=== PATIENT | male | born 1930 | race Caucasian/White ===

== ENCOUNTER 2016-07-27 09:21 | Emergency (ER) | payer OTHER, BC ==
[~2016-07-27] VITALS: Ht 170.2 cm; Wt 52.6 kg
[2016-07-27] MEDS ORDERED: KLOR-CON 1010 MEQ PO (09:51)
[2016-07-27] MEDS ORDERED: SIMVASTATIN40 MG PO (09:51)
[2016-07-27] MEDS ORDERED: AUGMENTIN 875875 MG PO (09:51)
[2016-07-27] MEDS ORDERED: IRBESARTAN150 MG PO (09:51)
[2016-07-27] MEDS ORDERED: FLUOROMETHOLONE15 ML OP (09:51)
[2016-07-27] MEDS ORDERED: TOPROL XL25 MG PO (09:51)
[2016-07-27] MEDS ORDERED: ELIQUIS2.5 MG PO (09:51)
[2016-07-27] MEDS ORDERED: HYDROCHLOROTHIA25 M2 PO (09:51)
[2016-07-27] MEDS ORDERED: DUREZOL5 ML OP (09:52)
[2016-07-27] MEDS ORDERED: FLUZONE HI180 MCG/04 IM (09:52)
[2016-07-27 10:05] LABS: ABSOLUTE NEUTROPHILS 8.1 thou/uL (1.4-8.2); BASOPHILS 0.5 % (0.0-2.0); EOSINOPHILS 0.5 % (0.0-3.0); HEMATOCRIT 33.7 % (42.0-52.0); HEMOGLOBIN 11.4 gm/dL (14.0-18.0); LYMPHOCYTES 11.5 % (24.0-44.0); MCH 30.5 pg (26.0-34.0); MCHC 33.9 % (28.0-37.0); MONOCYTES 9.3 % (1.0-8.0); PLATELET COUNT 248 thou/uL (150-400); POLYS 78.2 % (36.0-66.0); RBC 3.74 mil/uL (4.50-6.00); RDW 13.4 % (10.5-14.5); WBC 10.4 thou/uL (4.0-11.0)
[2016-07-27 10:09] LABS: MANUAL DIFF NO
[2016-07-27 10:22] LABS: CALCIUM 8.9 mg/dL (8.5-10.1); CREATININE 1.6 mg/dL (0.6-1.3)
[2016-07-27] MEDS ORDERED: PROAIR HFA8.5 GM INH (11:10)
[2016-07-27] MEDS ORDERED: TESSALON PERLE100 MG PO (11:10)
[2016-07-27 11:44] VITALS: BP 128/98
== END 2016-07-27 11:44 | disposition home or self-care (01) ==
LOC: ER 09:21
PROVIDERS: Emergency Medicine
DX: J18.9 Pneumonia, unspecified organism (principal); I25.10 Atherosclerotic heart disease of native coronary artery without angina pectoris

== ENCOUNTER 2016-11-25 05:52 | Inpatient (IN) | payer OTHER, BC ==
[~2016-11-25] VITALS: Ht 170.2 cm; Wt 50.3 kg
--- NOTE | ~2016-11-25 | O ---
[facility] [place] [address] OPERATIVE REPORT Name: ROBBY RIVERA Room #: 150-4 [facility] M..#: [id number] Admission: 11/25/16 Attend Phys: Boni Queen MD Discharge: Date of : 32 Report #: [id number] THIS REPORT FOR: //name// CC: Julio Queen DATE OF SERVICE: 11/25/2016 PATIENT OF: Dr. Boni Queen and Dr. Julio Mcdowell. PREOPERATIVE DIAGNOSIS: Right inguinal hernia. POSTOPERATIVE DIAGNOSES: Right inguinal hernia with a right cord lipoma. PROCEDURE: Right inguinal hernia repair with Prolene hernia system mesh and excision of right cord lipoma. SURGEON: Boni Queen MD ANESTHESIA: Local IV sedation. DESCRIPTION OF PROCEDURE: The patient was brought to the operating room and placed on operative table in the supine position. Sequential compression devices were in place for DVT prophylaxis. There was no indication for preoperative antibiotics. The patient underwent IV sedation. Right inguinal area was prepped and draped in a sterile fashion. Skin and subcutaneous tissue were then infiltrated with 0.5% Marcaine and 1% Xylocaine in a 1:1 mixture. Right inguinal skin incision was then performed using #10 scalpel blade. Hemostasis obtained using electrocautery as well as clamps and 2-0 chromic ties. Dissection was carried down through subcutaneous tissue, the external oblique fascia, which was then incised with a knife and opened with the Metzenbaum scissors. The ilioinguinal nerve was identified, dissected free, injected with the local mixture and preserved. Cord was then elevated and held into place with a [place] drain. Cremasteric muscle fibers were then split in the direction of fibers using clamp and electrocautery. A cord lipoma was identified, dissected free, clamped, excised and tied with a 2-0 chromic tie. The floor was inspected and there was a direct inguinal hernia sac. The hernia sac was dissected free and reduced through the floor and a large Prolene hernia system mesh was then inserted through the floor and the underlay patch was then deployed in the preperitoneal space. The floor was then tightened around the connector using running 2-0 Prolene two layer Shouldice repair. The overlay patch was then deployed in the inguinal canal and the mesh was secured at the pubic tubercle with the same running 2-0 Prolene suture. The mesh was then secured superiorly at the connector and using simple interrupted 2-0 Vicryl suture. The mesh was split and wrapped around the cord, secured to the inguinal [address] [address] OPERATIVE REPORT Name: ROBBY RIVERA Room #: 150-4 [facility] M.R.#: [id number] Admission: 11/25/16 Attend Phys: Boni Queen MD Discharge: Date of : 31 Report #: [id number] with simple interrupted 2-0 Vicryl suture. The cord and ilioinguinal nerve then returned to the canal intact. The external oblique fascia was then closed using running 2-0 Vicryl suture. Alfred's fascia was then reapproximated using 3 simple interrupted 2-0 chromic sutures and the skin then closed with a running 4-0 subcuticular Vicryl stitch. The wound was then dressed with Mastisol, 1/2-inch Steri-Strips cut in half, Telfa, 4 x 4 gauze, sponge and tape. The patient was then taken to recovery room awake, alert and in good condition. Estimated blood loss was less than 5 mL and the patient tolerated the procedure well. All sponge, lap and instrument counts correct times 2. By: 1116 [id number] Boni Queen MD /nt
--- NOTE | ~2016-11-25 | S ---
[facility] [place] [address] SURGICAL PATH RPT PROCEDURE Name: ROBBY RIVERA Room #: 439-P [facility] IN M.R.#: [id number] Admission: 11/25/16 Date of : 31 Discharge: 11/26/16 Report #: [id number] Path Case #: [id number] PATHOLOGY REPORT COLLECTION DATE: 11/25/2016 RECEIVED DATE: 11/25/2016 SUBMITTING PHYS: Dr. Boni Queen OTHER PHYS: Dr. Julio Mcdowell SPECIMEN(S) RECEIVED: A.Cord lipoma * * * * * * * * * * * * FINAL DIAGNOSIS: Mature adipose tissue, cord lipoma, excision: - Compatible with a lipoma associated with foci of fat necrosis and reactive changes. (IUV:mgr; d/t: 11/27/16) PATHOLOGIST: Alyssa Remy M.D. REPORT ELECTRONICALLY SIGNED BY: Alyssa Remy M.D. DATE/TIME: 11/27/2016 14:43 * * * * * * * * * * * * GROSS PATHOLOGY: Received in formalin labeled "Robby Rivera cord lipoma," is a segment of lobulated fibroadipose tissue measuring 5.2 x 1.5 x 1.0 cm in maximum dimensions. Sectioning reveals homogeneous, bright yellow cut surfaces. Yeast Maker tissue is submitted in cassette A1. (SNA; 11/26/2016) CLINICAL HISTORY: Right inguinal hernia INITIAL CPT CODE(S): A; 12785 Professional services performed by [facility] at [facility] [address] [place] [address] Technical services performed by [facility] at [address] [place] [id number]. [facility] [address] [place] [address] SURGICAL PATH RPT PROCEDURE Name: ROBBY RIVERA Room #: 439-P DIS IN M.R.#: [id number] Admission: 11/25/16 Date of : 31 Discharge: 11/26/16 Report #: [id number] Path Case #: [id number] [address] PHONE: [phone] DIRECTOR: Pratik Boateng M.D. * * * END OF REPORT * * *
--- NOTE | ~2016-11-25 | H ---
[facility] [place] [address] HISTORY AND PHYSICAL Name: ROBBY RIVERA Room #: 439-P [facility] IN M.R.#: [id number] Admission: 11/25/16 Attend Phys: Boni Queen MD Discharge: 11/26/16 Date of : 31 Report #: [id number] THIS REPORT FOR: //name// For History and Physical, please see office documentation/handwritten note in the patient's medical record. By: 0853 Boni Queen MD /
[~2016-11-25 05:52] MED LIST: AUGMENTIN 875875 MG PO; DUREZOL5 ML OP; ELIQUIS2.5 MG PO; FLUOROMETHOLONE15 ML OP; FLUZONE HI180 MCG/04 IM; HYDROCHLOROTHIA25 M2 PO; IRBESARTAN150 MG PO; KLOR-CON 1010 MEQ PO; LOTEMAX3.5 GM OPHTHALMIC; PRILOSEC OTC20 MG PO; PROAIR HFA8.5 GM INH; PROLIA60 MG/1 ML SQ; SIMVASTATIN40 MG PO; TESSALON PERLE100 MG PO; TOPROL XL25 MG PO; VITAMIN D31000 UNI2 PO
[2016-11-25 09:30] LABS: CALCIUM 8.3 mg/dL (8.5-10.1); CREATININE 1.3 mg/dL (0.7-1.3)
[2016-11-25 09:51] VITALS: BP 124/92
[2016-11-25] MEDS ORDERED: NORCO 5-325 TA1 EACH PO (11:31)
[2016-11-25 12:20] VITALS: BP 131/62
[2016-11-25 20:03] VITALS: BP 112/61
[2016-11-26 05:20] VITALS: BP 90/42
[2016-11-26 08:00] VITALS: BP 123/65
[2016-11-26 11:40] VITALS: BP 123/65
== END 2016-11-26 12:40 | disposition home or self-care (01) | DRG 352 ==
LOC: TBA 05:52 → OR 05:52 → 4S 12:53 → OR 14:16 → 4S 11-26 12:40
PROVIDERS: Surgery
PROC: 0YU50JZ Supplement Right Inguinal Region with Synthetic Substitute, Open Approach (ICD-10-PCS; principal; 2016-11-25)
PROC: 0VB Male Reproductive System, Excision (ICD-10-PCS; principal; 2016-11-25)
DX: K40.90 Unilateral inguinal hernia, without obstruction or gangrene, not specified as recurrent (principal); D17.5 Benign lipomatous neoplasm of intra-abdominal organs; Z79.899 Other long term (current) drug therapy
CPT/HCPCS: 10102; 50010; 50101; 50386; 50417; 52061; 56524; 56525; 56526; 56528; 62110; 62850; 70005

== ENCOUNTER → 2020-01-04 | Outpatient (CLI) | payer OTHER, BC ==
[~2020-01-04] MED LIST changes: +NORCO 5-325 TA1 EACH PO
== END ==
LOC: SJCVC 10:12
PROVIDERS: ATTEND Internal Medicine Cardiovascular Disease
DX: I45.10 Unspecified right bundle-branch block (principal); R94.31 Abnormal electrocardiogram [ECG] [EKG]; I48.91 Unspecified atrial fibrillation; E78.00 Pure hypercholesterolemia, unspecified; I10 Essential (primary) hypertension; I08.0 Rheumatic disorders of both mitral and aortic valves; D68.59 Other primary thrombophilia; E78.5 Hyperlipidemia, unspecified; Z79.899 Other long term (current) drug therapy; Z82.49 Family history of ischemic heart disease and other diseases of the circulatory system; Z87.891 Personal history of nicotine dependence

== ENCOUNTER → 2020-10-08 | Outpatient (CLI) | payer OTHER, BC | LOC: SJCVCIMAG 07:38 | PROVIDERS: ATTEND Internal Medicine Cardiovascular Disease | DX: I08.3 Combined rheumatic disorders of mitral, aortic and tricuspid valves (principal); I48.91 Unspecified atrial fibrillation; E78.00 Pure hypercholesterolemia, unspecified; I10 Essential (primary) hypertension; E78.5 Hyperlipidemia, unspecified; I27.20 Pulmonary hypertension, unspecified; R94.31 Abnormal electrocardiogram [ECG] [EKG]; Z79.899 Other long term (current) drug therapy; Z87.891 Personal history of nicotine dependence; Z72.89 Other problems related to lifestyle ==

== ENCOUNTER 2020-10-09 17:17 | Emergency (ER) | payer OTHER, BC ==
[~2020-10-09] VITALS: Ht 167.6 cm; Wt 52.2 kg
--- NOTE | ~2020-10-09 | EMS ---
[address] [address] EMS Patient Care Report Name: ROBBY RIVERA Room #: REG DARI Baker#: [id number] Admission: 10/09/20 Attend Phys: Discharge: Date of : 31 Report #: [id number] THIS REPORT FOR: //name// Report Transmitted: 10/09/2020 17:57 EMS Care Summary [facility] MED-ACT Incident [id number] @ 10/09/2020 16:29 Incident Location [address] [place] [address] Patient ROBBY RIVERA Male, 89 Years 1930 Patient Address [address] [place] [address] Patient History Atrial Fibrillation, Patient Allergies No known allergies, Patient Medications Eliquis, Erythropoietin, Metoprolol, Hydrochlorothiazide (Hctz), Chief Complaint syncope, per bystander Disposition Transported No Lights/[place] Dispatch Reason Sick Person Transported To [facility] Narrative [id number] arrived to find pt. seated in the dining room of an independent living facility, A & O x 3. Bystander states that while she was eating dinner she noticed pt. slumped over to the side of his chair and drooling. Bystander states that when she got to pt's side he awoke. Pt. states he remembers eating [address] [address] EMS Patient Care Report Name: ROBBY RIVERA Room #: REG DARI Baker#: [id number] Admission: 10/09/20 Attend Phys: Discharge: Date of : 31 Report #: [id number] and feeling so full that he knew he should not eat any more. Pt. states that at this time he feels fine and has no complaints. Pt. specifically denies chest pain, SOB, or weakness. Pt. also states that yesterday he saw his rn lactation consultant who stated he was doing well and scheduled his next appointment for one year out. Pt. stands and takes a couple of steps to the cot without difficulty. Pt. is moved to unit for 12-lead EKG and placement of IV. Pt. is transported to [facility] without change and moved to bed. Pt. care was transferred to clinical staff pharmacist. Initial Vitals @16:58P: 78,BP: 113/69,SpO2: 86, @17:08P: 82,SpO2: 92, @16:43P: 26,SpO2: 90, @16:40P: 75,R: 12,SpO2: 95,AK Suspected: false @16:38P: 63,SpO2: 90, @16:42P: 68,BP: 103/66,SpO2: 93, @16:39P: 67,R: 12,BP: 137/115,Pain: 0/10,GCS: 15,Temp: 97.8F,Glucose: 114,SpO2: 93,Revised Trauma: 12, @16:55P: 81,SpO2: 93, Assessments @16:38MENTAL:Person Oriented,Time Oriented,Place Oriented,Event Oriented,SKIN:HEENT:Head/Face: No Abnormalities,Neck/Airway: No Abnormalities,LUNG SOUNDS:General: No Abnormalities,ABDOMEN:General: No Abnormalities,PELVIS//GI:EXTREMITIES:Left Arm: No Abnormalities,Right Arm: No Abnormalities,Left Leg: No Abnormalities,Right Leg: No Abnormalities,PULSE:NEURO:No Abnormalities, Impression Syncope / Fainting Procedures @16:51Surgical Mask on PatientResponse: Unchanged@16:4012-Lead ECG@16:55Saline Lock 10cc (20 ga) Site: Antecubital-LeftResponse: UnchangedSucceeded Timeline 16:28,Call Received 16:28,Psap Call 16:29,Dispatched 16:29,En Route 16:34,On Scene 16:36,At Patient 16:38,BP: / M,PULSE: 63,RR: R,SPO2: 90 Ox,ETCO2: ,BG: ,PAIN: ,GCS: , 16:39,BP: 137/115 M,PULSE: 67,RR: 12 R,SPO2: 93 Ox,ETCO2: ,B,PAIN: [address] [place] [address] EMS Patient Care Report Name: ROBBY RIVERA Room #: LEEANNE Baker#: [id number] Admission: 10/09/20 Attend Phys: Discharge: Date of : 31 Report #: [id number] 0,GCS: 15, 16:40,12-Lead ECG, 16:40,BP: / M,PULSE: 75,RR: 12 R,SPO2: 95 Ox,ETCO2: ,BG: ,PAIN: ,GCS: , 16:42,BP: 103/66 M,PULSE: 68,RR: R,SPO2: 93 Ox,ETCO2: ,BG: ,PAIN: ,GCS: , 16:43,BP: / M,PULSE: 26,RR: R,SPO2: 90 Ox,ETCO2: ,BG: ,PAIN: ,GCS: , 16:51,Surgical Mask on Patient,Response: Unchanged 16:55,Saline Lock 10cc 20 ga Site: Antecubital-Left,Response: UnchangedSucceeded, 16:55,Depart Scene 16:55,BP: / M,PULSE: 81,RR: R,SPO2: 93 Ox,ETCO2: ,BG: ,PAIN: ,GCS: , 16:58,BP: 113/69 M,PULSE: 78,RR: R,SPO2: 86 Ox,ETCO2: ,BG: ,PAIN: ,GCS: , 17:05,At Destination 17:08,BP: / M,PULSE: 82,RR: R,SPO2: 92 Ox,ETCO2: ,BG: ,PAIN: ,GCS: , 17:22,Call Closed Disclaimer v1.1 Copyright 2020 [employer] This EMS Care Summary contains data elements from the applicable legal record (which may be displayed differently). It is designed to provide pertinent information for the following purposes: continuity of care, clinical quality, and state data reporting. The complete legal record is available to ED staff and administrators of the receiving hospital in [employer] Patient Tracker. All data is provided "as is."
[2020-10-09 17:41] LABS: BASOPHILS 0.7 % (0.0-2.0); EOSINOPHILS 1.3 % (0.0-3.0); HEMATOCRIT 34.9 % (42.0-52.0); HEMOGLOBIN 11.8 gm/dL (14.0-18.0); LYMPHOCYTES 19.7 % (24.0-44.0); MCH 31.6 pg (26.0-34.0); MCHC 33.7 g/dL (28.0-37.0); MCV 93.8 fL (80.0-100.0); MONOCYTES 9.9 % (1.0-8.0); PLATELET COUNT 231 thou/uL (150-400); POLYS 68.4 % (36.0-66.0); RBC 3.72 mil/uL (4.50-6.00); RDW 13.9 % (10.5-14.5); WBC 5.9 thou/uL (4.0-11.0)
[2020-10-09 17:48] LABS: ANION GAP 10 mmol/L (7-16); BUN 41 mg/dL (7-18); CALCIUM 8.4 mg/dL (8.5-10.1); CHLORIDE 95 mmol/L (98-107); CO2 24 mmol/L (21-32); CREATININE 1.7 mg/dL (0.7-1.3); GLUCOSE 111 mg/dL (74-106); POTASSIUM 4.3 mmol/L (3.5-5.1); SODIUM 129 mmol/L (136-145)
[2020-10-09 17:57] LABS: ALBUMIN 3.4 g/dL (3.4-5.0); SGOT 31 U/L (15-37); SGPT 34 U/L (16-63); TOTAL BILIRUBIN 0.5 mg/dL (0.2-1.0); TROPONIN-I <0.06 ng/mL (<0.06)
[2020-10-09 19:53] LABS: URINE BILIRUBIN NEGATIVE (Negative); URINE BLOOD 1+ (Negative); URINE CLARITY CLEAR; URINE COLOR YELLOW; URINE GLUCOSE-RANDOM* NEGATIVE (Negative); URINE KETONES NEGATIVE (Negative); URINE LEUKOCYTES-REFLEX NEGATIVE (Negative); URINE NITRITE-REFLEX NEGATIVE (Negative); URINE PROTEIN (DIPSTICK) NEGATIVE (Negative); URINE UROBILINOGEN 0.2 E.U./dl (0.2-1.0)
[2020-10-09 20:07] LABS: CASTS None Seen /LPF (None Seen); SQUAMOUS 0-3 Few /LPF (0-3)
[2020-10-09 20:08] LABS: BACTERIA-REFLEX 1-9 Few /HPF (None Seen); CRYSTALS None Seen /LPF (None Seen); URINE RBC 3-10 Few /HPF (0-2); URINE WBC-REFLEX 0-5 Rare /HPF (0-5)
[2020-10-10 01:53] VITALS: BP 120/65
--- NOTE | 2020-10-10 07:01 | EKG ---
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
== END 2020-10-10 01:56 ==
LOC: ER 17:17
PROVIDERS: Physician Assistant
DX: R55 Syncope and collapse (principal); I10 Essential (primary) hypertension; E78.5 Hyperlipidemia, unspecified; I48.91 Unspecified atrial fibrillation; K21.9 Gastro-esophageal reflux disease without esophagitis; Z79.899 Other long term (current) drug therapy